=== PATIENT | male | born 1955 | race Asian ===

== ENCOUNTER 2019-09-06 11:46 | Inpatient (IN) | payer BC ==
[~2019-09-06] VITALS: Ht 172.7 cm; Wt 86.7 kg
[2019-09-06 12:58] LABS: BASOPHILS % 0.6 % (0.0-2.0); EOSINOPHILS % 1.7 % (0.0-5.0); HEMATOCRIT. 33.9 % (42.0-52.0); LYMPHOCYTES % 17.6 % (20.0-50.0); MEAN CORPUSCULAR HEMOGLOBIN 33.7 pg (28.0-32.0); MEAN CORPUSCULAR VOLUME 95.3 fL (80.0-94.0); MEAN PLATELET VOLUME 7.2 fl (7.4-10.4); MONOCYTES % 11.3 % (2.0-8.0); NEUTROPHILS % 68.8 % (40.0-76.0); PLATELET 181 x1000/uL (130-400); RED BLOOD CELL COUNT 3.55 mill/uL (4.7-6.1); RED CELL DISTRIBUTION WIDTH 13.6 % (11.6-14.6)
[2019-09-06 13:06] LABS: CHLORIDE 108 mEq/L (98-107)
[2019-09-06 13:30] LABS: D-DIMER 0.84 mg/L FEU (<0.50); INR 1.1; PARTIAL THROMBOPLASTIN TIME 26.6 sec (23.4-31.0); PROTHROMBIN TIME 11.4 sec (9.6-11.0)
[2019-09-06] MEDS ORDERED: AMLODIPINE 5MG TABLET PO SCH (14:00)
[2019-09-06] MEDS ORDERED: METOPROLOL TARTRATE 100MG TABLET PO ONE (14:00)
[2019-09-06] MEDS: NITROGLYCERIN 0.4MG TABLET SL SL PRN ×2 (14:22→14:44)
[2019-09-06] MEDS ORDERED: FUROSEMIDE 40MG/4ML VIAL IV ONE (15:30)
[2019-09-06] MEDS ORDERED: NITROGLYCERIN OINT 1GM/INCH UDPKT TD ONE (15:30)
[2019-09-06] MEDS ORDERED: CLONIDINE 0.1MG TABLET PO PRN (15:45)
[2019-09-06] MEDS ORDERED: ACETAMINOPHEN 325MG TABLET PO PRN (15:45)
[2019-09-06] MEDS ORDERED: ONDANSETRON HCL 4MG/2ML INJ IV PRN (15:45)
[2019-09-06] MEDS ORDERED: IOHEXOL-350 100 ML BOTTLE ONE (15:56)
[2019-09-06 17:43] LABS: BG BASE EXCESS -3.1 mmol/L (-2.0-2.0); BG CARBOXYHEMOGLOBIN 0.3 % (0.5-1.5); BG DEOXYHEMOGLOBIN 6.2 % (0.0-5.0); BG FRACTION INSPIRED OXYGEN 21; BG HCO3 ACT 21.4 mmol/L (22.0-26.0); BG METHEMOGLOBIN 0.1 % (0.0-1.5); BG OXYGEN SATURATION 93.8 % (92.0-98.5); BG OXYHEMOGLOBIN 93.4 % (94.0-97.0); BG PCO2 36.1 mmHg (35.0-45.0); BG PO2 74.2 mmHg (75.0-100.0); BG SAMPLE SITE RIGHT RADIAL; BG VENT MODE ROOM AIR
[2019-09-06] MEDS ORDERED: ENOXAPARIN 80MG/0.8ML SYR SUBCUT ONE (20:00)
[2019-09-06] MEDS ORDERED: HEPARIN 5000 UNITS/ML VIAL SUBCUT SCH (21:00)
[2019-09-06] MEDS ORDERED: NITROGLYCERIN OINT 1GM/INCH UDPKT TD SCH (22:00)
[2019-09-07] VITALS (7 sets, daily range): BP systolic 135–159; BP diastolic 69–84
[2019-09-07] MEDS ORDERED: AMLO5TAB88 MT (00:55)
[2019-09-07] MEDS ORDERED: LOSA50TA41 MT (00:55)
[2019-09-07] MEDS ORDERED: METO-539 MT (00:57)
[2019-09-07] MEDS ORDERED: TAMS-11 PO (00:58)
[2019-09-07] MEDS: NITROGLYCERIN OINT 1GM/INCH UDPKT TD SCH ×5 (04:41→20:29)
[2019-09-07 06:30] LABS: CHLORIDE 107 mEq/L (98-107)
[2019-09-07 06:31] LABS: BASOPHILS % 0.6 % (0.0-2.0); EOSINOPHILS % 2.6 % (0.0-5.0); HEMATOCRIT. 36.3 % (42.0-52.0); HEMOGLOBIN. 12.9 g/dL (14.0-18.0); MEAN CORPUSCULAR HEMOGLOBIN 33.7 pg (28.0-32.0); MEAN CORPUSCULAR VOLUME 95.2 fL (80.0-94.0); MEAN PLATELET VOLUME 7.6 fl (7.4-10.4); MONOCYTES % 12.9 % (2.0-8.0); NEUTROPHILS % 68.9 % (40.0-76.0); PLATELET 180 x1000/uL (130-400); RED BLOOD CELL COUNT 3.81 mill/uL (4.7-6.1); RED CELL DISTRIBUTION WIDTH 13.8 % (11.6-14.6)
[2019-09-07 06:51] LABS: HDL CHOLESTEROL 40 mg/dL (40-59); LDL CHOLESTEROL 119 mg/dL (5-100)
[2019-09-07 06:52] LABS: VITAMIN B12 SERUM 482 pg/mL (211-911)
[2019-09-07] MEDS: TAMSULOSIN HCL 0.4MG SR CAPSULE PO SCH (09:19)
[2019-09-07] MEDS: LOSARTAN POTASSIUM 50 MG TABLET PO SCH (09:19)
[2019-09-07] MEDS: METOPROLOL TARTRATE 50MG TABLET PO SCH ×2 (09:19→20:28)
[2019-09-07] MEDS ORDERED: POTASSIUM CHLORIDE 20MEQ/PACKET PO NR (10:30)
[2019-09-07] MEDS ORDERED: FUROSEMIDE 40MG/4ML VIAL IVP SCH (12:00)
[2019-09-07 17:47] LABS: TOTAL IRON BINDING CAPACITY 260 ug/dL (250-450)
[2019-09-07] MEDS: ATORVASTATIN CALCIUM 20MG TABLET PO SCH (20:28)
[2019-09-08] VITALS (8 sets, daily range): BP systolic 99–127; BP diastolic 61–74
[2019-09-08] MEDS: NITROGLYCERIN OINT 1GM/INCH UDPKT TD SCH ×6 (01:44→20:39)
[2019-09-08] MEDS ORDERED: SODIUM CHLORIDE 0.45% 1,000 ML IV SCH (05:00)
[2019-09-08 07:11] LABS: CHLORIDE 105 mEq/L (98-107)
[2019-09-08 07:12] LABS: BASOPHILS % 0.8 % (0.0-2.0); EOSINOPHILS % 2.6 % (0.0-5.0); HEMATOCRIT. 39.8 % (42.0-52.0); HEMOGLOBIN. 14.1 g/dL (14.0-18.0); LYMPHOCYTES % 17.9 % (20.0-50.0); MEAN CORPUSCULAR HEMOGLOBIN 33.8 pg (28.0-32.0); MEAN CORPUSCULAR VOLUME 95.7 fL (80.0-94.0); MONOCYTES % 14.9 % (2.0-8.0); NEUTROPHILS % 63.8 % (40.0-76.0); PLATELET 196 x1000/uL (130-400); RED BLOOD CELL COUNT 4.16 mill/uL (4.7-6.1); RED CELL DISTRIBUTION WIDTH 13.8 % (11.6-14.6)
[2019-09-08] MEDS: METOPROLOL TARTRATE 50MG TABLET PO SCH ×2 (08:44→20:38)
[2019-09-08] MEDS: TAMSULOSIN HCL 0.4MG SR CAPSULE PO SCH (08:44)
[2019-09-08] MEDS: LOSARTAN POTASSIUM 50 MG TABLET PO SCH (08:44)
[2019-09-08] MEDS ORDERED: NON FORMULARY PATIENT HOME MED XX SCH (09:15)
[2019-09-08] MEDS ORDERED: ASPIRIN/SOD BICARB/CITRIC ACID 324MG TAB EFF ONE (09:21)
[2019-09-08] MEDS ORDERED: BIVALIRUDIN 250 MG in SODIUM CHLORIDE 0.9% 50 ML IV SCH (09:30)
[2019-09-08] MEDS ORDERED: FENTANYL CITRATE/PF 50MCG/ML 2ML VIAL ONE (09:35)
[2019-09-08] MEDS ORDERED: IOHEXOL-300 100 ML BOTTLE ONE (09:35)
[2019-09-08] MEDS ORDERED: MIDAZOLAM HCL 2 MG/2 ML VIAL ONE (09:35)
[2019-09-08] MEDS ORDERED: IODIXANOL 320MG/ML 100 ML BOTTLE IV ONE (09:35)
[2019-09-08] MEDS ORDERED: LIDOCAINE HCL 1% 20ML VIAL (Pyxis) INJ ONE (09:50)
[2019-09-08] MEDS ORDERED: MORPHINE SULFATE 2 MG/ML CPJ (NOT FOR IM USE) IV PRN ×2 (11:15)
[2019-09-08] MEDS ORDERED: ATROPINE SULFATE 1MG/10ML SYR IV PRN (11:15)
[2019-09-08] MEDS ORDERED: SODIUM CHLORIDE 0.45% 1,000 ML IV ONE (11:15)
[2019-09-08] MEDS ORDERED: ONDANSETRON HCL 4MG/2ML INJ IV PRN (11:15)
[2019-09-08] MEDS ORDERED: ACETAMINOPHEN 325MG TABLET PO PRN (11:15)
[2019-09-08] MEDS ORDERED: NITROGLYCERIN 50MCG/ML 10ML VIAL (CATH LAB) IV ONE (12:12)
[2019-09-08] MEDS ORDERED: NICARDIPINE 100MCG/ML 10ML VIAL (CATH LAB) IV ONE (12:12)
[2019-09-08] MEDS: ATORVASTATIN CALCIUM 20MG TABLET PO SCH (20:38)
[2019-09-09] VITALS: BP 111/67
[2019-09-09] MEDS: NITROGLYCERIN OINT 1GM/INCH UDPKT TD SCH ×3 (01:10→08:00)
[2019-09-09 02:00] VITALS: BP_SYST 104; BP_SYST 156; BP_DIAS 62; BP_DIAS 80
[2019-09-09 04:00] VITALS: BP 114/66
[2019-09-09 06:00] VITALS: BP 117/71
[2019-09-09 07:20] LABS: CHLORIDE 107 mEq/L (98-107)
[2019-09-09 08:00] VITALS: BP 124/74
[2019-09-09 08:30] LABS: BASOPHILS % 0.5 % (0.0-2.0); EOSINOPHILS % 2.2 % (0.0-5.0); HEMATOCRIT. 38.3 % (42.0-52.0); HEMOGLOBIN. 13.5 g/dL (14.0-18.0); LYMPHOCYTES % 16.4 % (20.0-50.0); MEAN CORPUSCULAR HEMOGLOBIN 33.6 pg (28.0-32.0); MEAN CORPUSCULAR VOLUME 95.3 fL (80.0-94.0); MONOCYTES % 12.8 % (2.0-8.0); NEUTROPHILS % 68.1 % (40.0-76.0); PLATELET 183 x1000/uL (130-400); RED BLOOD CELL COUNT 4.02 mill/uL (4.7-6.1); RED CELL DISTRIBUTION WIDTH 13.9 % (11.6-14.6)
[2019-09-09] MEDS: LOSARTAN POTASSIUM 50 MG TABLET PO SCH (09:00)
[2019-09-09] MEDS: METOPROLOL TARTRATE 50MG TABLET PO SCH (09:00)
[2019-09-09] MEDS: TAMSULOSIN HCL 0.4MG SR CAPSULE PO SCH (09:00)
== END 2019-09-09 09:22 | disposition short-term general hospital (02) | DRG 287 ==
LOC: ER 12:12 → EDBEDREQ 12:40 → 5WST 15:16 → EDBEDREQTM 15:20 → EDBEDREQ 15:20 → ENRESERV 22:20 → 3WST 09-08 11:39
PROVIDERS: ADMIT Internal Medicine; ATTEND Internal Medicine
PROC: 4A023N8 Measurement of Cardiac Sampling and Pressure, Bilateral, Percutaneous Approach (ICD-10-PCS; principal; 2019-09-08)
PROC: B2111ZZ Fluoroscopy of Multiple Coronary Arteries using Low Osmolar Contrast (ICD-10-PCS; 2019-09-08)
DX: I11.0 Hypertensive heart disease with heart failure (principal); J98.11 Atelectasis; I25.119 Atherosclerotic heart disease of native coronary artery with unspecified angina pectoris; I50.43 Acute on chronic combined systolic (congestive) and diastolic (congestive) heart failure; E78.5 Hyperlipidemia, unspecified; I05.0 Rheumatic mitral stenosis; I25.10 Atherosclerotic heart disease of native coronary artery without angina pectoris; I25.2 Old myocardial infarction; Z86.73 Personal history of transient ischemic attack (TIA), and cerebral infarction without residual deficits; Z87.891 Personal history of nicotine dependence; Z95.1 Presence of aortocoronary bypass graft; Z95.2 Presence of prosthetic heart valve; Z79.899 Other long term (current) drug therapy; Z88.8 Allergy status to other drugs, medicaments and biological substances
CPT/HCPCS: 36415; 36600; 71045; 71275; 80048; 80053; 80061; 82375; 82607; 82805; 83036; 83540; 83550; 83735; 83880; 84443; 84484; 85025; 85044; 85347; 85379; 86022; 93005; 93306; 93460; 93970; 99285; C1769; C1887; C1893; J0583; J1940; J2250; J3010; J3490; Q9967